=== PATIENT | male | born 1970 ===

== ENCOUNTER → 2022-09-15 14:21 | Outpatient (BNVA) | payer OTHER, SELFPAY | PROVIDERS: PCP Internal Medicine; Referring Provider Internal Medicine; Visit Provider Surgery | DX: L72.0 Epidermal cyst (principal); R51.9 Headache, unspecified | CPT/HCPCS: 99202 ==

== ENCOUNTER 2022-10-07 09:47 | Outpatient (REF) | payer OTHER, SELFPAY | END 2022-10-07 09:48 | disposition home or self-care (01) | LOC: CF 09:47 | PROVIDERS: Visit Provider Surgery | DX: L72.0 Epidermal cyst (principal) | CPT/HCPCS: 11422 ==

== ENCOUNTER 2022-10-07 14:21 | Outpatient (REF) | payer OTHER, SELFPAY | END 2022-10-07 14:22 | disposition home or self-care (01) | LOC: HO.LNP 14:21 | PROVIDERS: Visit Provider Surgery | DX: L72.0 Epidermal cyst (principal) | CPT/HCPCS: 88304 ==

== ENCOUNTER → 2022-10-14 09:39 | Outpatient (BNVA) | payer OTHER, SELFPAY | PROVIDERS: PCP Internal Medicine; Visit Provider Physician Assistant Surgical | DX: Z48.02 Encounter for removal of sutures (principal); L72.0 Epidermal cyst; F17.210 Nicotine dependence, cigarettes, uncomplicated | CPT/HCPCS: 99212 ==